=== PATIENT | male | born 1945 | race Native Hawaiian/Other Pacific Islander ===

== ENCOUNTER 2023-08-10 17:37 | Inpatient (IN) | payer OTHER ==
[~2023-08-10] VITALS: Ht 182.9 cm; Wt 76.7 kg
[~2023-08-10 17:37] MED LIST: AZEL137S NAS; BUSPIRONE5 MG PO; DONEPEZIL HYDRO10 MG PO; KETOCONAZOLE2 % TOP; LORA0.5T17 PO; MELOXICAM PO; MEMANTINE HYDRO10 MG PO; MIRALAX17 GM/SCOO PO; NIZORAL TOP; OMEP20CA PO; QUET25TA2 PO; RENATAB1 PO; TADALAFIL5 MG PO; TAMS0.4C PO; VENLAFAXINE75 M2 PO
[2023-08-10 20:00] VITALS: BP 124/66; TEMP 98.6
[2023-08-10 23:12] VITALS: BP 140/70; TEMP 98.6; Ht 182.9 cm; Wt 76.7 kg
[2023-08-11] VITALS: BP 124/66; TEMP 98.9
[2023-08-11 04:00] VITALS: BP 123/76; TEMP 98.4
[2023-08-11 06:36] LABS: POTASSIUM 4.3 mmol/L (3.6-5.2)
[2023-08-11 07:14] LABS: PLATELET COUNT 147 K/uL (142-355)
[2023-08-11 08:00] VITALS: BP 124/79; TEMP 97.3
[2023-08-11 12:00] VITALS: BP 108/84; TEMP 98.2
[2023-08-11 16:00] VITALS: BP 126/81; TEMP 98.1
[2023-08-11 20:00] VITALS: BP 121/93; TEMP 100
[2023-08-12] VITALS: BP 147/99; TEMP 98.7
[2023-08-12 04:00] VITALS: BP 124/82; TEMP 98.4
[2023-08-12 08:00] VITALS: BP 111/80; TEMP 97.9
[2023-08-12 12:00] VITALS: BP 119/72; TEMP 97.3
[2023-08-13 20:00] VITALS: BP 102/64; TEMP 98.6
[2023-08-14 08:00] VITALS: BP 94/53; TEMP 99.3
== END 2023-08-14 19:52 | disposition expired | DRG 177 ==
LOC: MED/SURG 17:37
PROVIDERS: Family Medicine; ADMIT Nurse Practitioner Family; ATTEND Nurse Practitioner Family
DX: U07.1 COVID-19 (principal); J18.9 Pneumonia, unspecified organism; N17.8 Other acute kidney failure; F02.818 Dementia in other diseases classified elsewhere, unspecified severity, with other behavioral disturbance; I46.9 Cardiac arrest, cause unspecified; R62.7 Adult failure to thrive; R06.09 Other forms of dyspnea; R05.9 Cough, unspecified; G30.8 Other Alzheimer's disease; F32.9 Major depressive disorder, single episode, unspecified; I10 Essential (primary) hypertension; N40.0 Benign prostatic hyperplasia without lower urinary tract symptoms; E78.49 Other hyperlipidemia; G89.29 Other chronic pain; K21.9 Gastro-esophageal reflux disease without esophagitis
CPT/HCPCS: 36415; 36600; 80053; 80200; 82805; 83735; 84100; 85027; 94667; 94668; 94760; 96361; 96368; 96375; J2060; J2270; J2920; J3260; J3411; J3475; J3490